=== PATIENT | female | born 1980 | race Caucasian/White ===

== ENCOUNTER 2021-04-19 07:43 | Outpatient (CLI) | payer OTHER | END 2021-04-19 07:53 | disposition home or self-care (01) | LOC: SONOGRAMA 07:43 → MAMO-SONO 07:45 → SONOGRAMA 07:53 | PROVIDERS: ATTEND Obstetrics & Gynecology | DX: R10.2 Pelvic and perineal pain (principal) ==

== ENCOUNTER 2021-04-29 07:55 | Outpatient (CLI) | payer OTHER | END 2021-04-29 08:15 | disposition home or self-care (01) | LOC: PPH VACUNA 07:55 | PROVIDERS: ATTEND Emergency Medicine Pediatric Emergency Medicine | DX: Z23 Encounter for immunization (principal) ==

== ENCOUNTER 2021-11-08 11:24 | Outpatient (CLI) | payer OTHER | END 2021-11-08 11:30 | disposition home or self-care (01) | LOC: MAMO-SONO 11:24 | PROVIDERS: ATTEND Obstetrics & Gynecology | DX: N60.11 Diffuse cystic mastopathy of right breast (principal) ==

== ENCOUNTER 2022-04-28 10:23 | Outpatient (CLI) | payer OTHER | END 2022-04-28 10:30 | disposition home or self-care (01) | LOC: LAB 10:23 | PROVIDERS: ATTEND Urology | DX: N30.00 Acute cystitis without hematuria (principal) ==